=== PATIENT | male | born 1975 | race Caucasian/White ===

== ENCOUNTER 2024-01-03 07:21 | Emergency (ER) | payer OTHER, SELFPAY ==
--- NOTE | ~2024-01-03 | XR_ITS ---
EXAMINATION: XR shoulder LT min 2V DATE: 01/03/2024 09:13 INDICATION: Left shoulder pain. TECHNIQUE: 5 views of left shoulder were obtained. COMPARISON: None. FINDINGS: Bone alignment is normal. No fracture. The glenohumeral joint is normal. There is mildly ac romioclavicular joint osteoarthritis. IMPRESSION: 1. Mild acromioclavicular joint osteoarthritis. Reviewed, dictated and finalized at location A.
[2024-01-03 07:26] VITALS: BP 138/83; PULSE 81; RESP 18; TEMP 36.2; O2SAT 100
--- NOTE | 2024-01-03 09:25 | ED.GENADULT ---
HPI - General Adult General Chief complaint: Unspecified Stated complaint: accident at work Time Seen by Provider: 01/03/24 08:59 History of Present Illness HPI narrative: 48-year-old male presenting to the emergency department for evaluation of left shoulder injury. Patient was at work when he was lifting a heavy object when he had onset of left shoulder pain. Patient states initially he had numbness and tingling of the left hand but this has since improved. Patient does have increased pain with range of motion. Patient describes pain in the shoulder blade that radiates up to his trapezius and into his left shoulder Related Data Allergies Allergy/AdvReac Type Severity Reaction Status Date / Time No Known Allergies Allergy Verified 01/03/24 09:29 Review of Systems Review of Systems: All systems reviewed & are unremarkable except as noted in HPI and below Exam Narrative: APPEARANCE: Well appearing, no pain, no distress, well-nourished. HEAD: normocephalic, atraumatic. EYES: PERRLA/EOMI, conjunctivae clear. NOSE: Normal no drainage NECK: Supple. No adenopathy, no masses. RESPIRATORY: Airway patent, respirations nonlabored. Clear to auscultation bilaterally, no rales, rhonchi, wheezing. CARDIOVASCULAR: Regular rate and rhythm without murmurs rubs or gallops. ABDOMINAL: Soft, nontender, nondistended, normal bowel sounds MUSCULOSKELETAL: tenderness to posterior shoulder muscles and trapezius. Limited range of motion, no deformity, neurovascularly intact NEURO: Alert. Cranial nerves II through XII intact. grossly to SKIN: Warm, dry. Normal Color Course Vital Signs Vital signs: Vital Signs Temperature 97.2 F L 01/03/24 07:26 Pulse Rate 81 01/03/24 07:26 Respiratory Rate 18 01/03/24 07:26 Blood Pressure 138/83 01/03/24 07:26 Pulse Oximetry 100 01/03/24 07:26 Oxygen Delivery Room Air 01/03/24 07:26 Temperature 97.2 F L 01/03/24 07:26 Pulse Rate 81 01/03/24 07:26 Respiratory Rate 18 01/03/24 07:26 Blood Pressure 138/83 01/03/24 07:26 Pulse Oximetry 100 01/03/24 07:26 Oxygen Delivery Room Air 01/03/24 07:26 Medical Decision Making [facility] Narrative Medical decision making narrative: 40-year-old male presents emergency department for evaluation a left shoulder injury after lifting heavy object. No acute fracture dislocation. Suspect a shoulder strain. Differential Diagnosis Differential Diagnosis: Muscular strain, rotator cuff injury, fracture, dislocation Vital Signs Vital Signs: Vital Signs Temperature 97.2 F L 01/03/24 07:26 Pulse Rate 81 01/03/24 07:26 Respiratory Rate 18 01/03/24 07:26 Blood Pressure 138/83 01/03/24 07:26 Pulse Oximetry 100 01/03/24 07:26 Oxygen Delivery Room Air 01/03/24 07:26 Temperature 97.2 F L 01/03/24 07:26 Pulse Rate 81 01/03/24 07:26 Respiratory Rate 18 01/03/24 07:26 Blood Pressure 138/83 01/03/24 07:26 Pulse Oximetry 100 01/03/24 07:26 Oxygen Delivery Room Air 01/03/24 07:26 Imaging Data Radiologist's impression: Impressions Shoulder X-Ray 01/03/24 09:15 IMPRESSION: 1. Mild acromioclavicular joint osteoarthritis. Discharge Plan Discharge Clinical Impression: Injury of shoulder Patient Disposition: Home, Self-Care Condition: Stable Instructions: Antibiotic Form, How to Use a Sling (ED), Shoulder Sprain (ED) Additional Instructions: Tylenol for pain control. Flexeril for muscle spasm. sling for comfort. Have close follow-up with her primary care physician. If you continue to have worsening left shoulder pain you may need an outpatient MRI. If you have any worsening symptoms and please call or return to the emergency department pain Prescriptions: New cyclobenzaprine 10 mg tablet 10 mg PO BID PRN (Reason: muscle spasm) Qty: 14 0RF Follow-up/Referrals: UNKNOWN,DOCTOR [Primary Care Provider] - Stand Alone Forms: Work/School Re
[2024-01-03] MEDS: HYDROcodone/acetaminophen (*CRX) 5-325 MG TABLET 1 TAB PO (09:33)
[2024-01-03] MEDS: CYCLOBENZAPRINE HCL 10 MG TABLET PO (09:33)
== END 2024-01-03 09:44 | disposition home or self-care (01) ==
PROVIDERS: Emergency Provider Emergency Medicine
DX: S49.92XA Unspecified injury of left shoulder and upper arm, initial encounter (principal); X50.0XXA Overexertion from strenuous movement or load, initial encounter
CPT/HCPCS: 73030; 99283; A4565; A9270